=== PATIENT | female | born 1985 ===

== ENCOUNTER 2018-11-22 21:07 | Emergency (ER) | payer BC ==
[2018-11-22 21:13] VITALS: BP 116/70; PULSE 74; TEMP 98.3; BMI 21.8
[2018-11-22] MEDS ORDERED: predniSONE 20 MG TABLET (UD) PO ONE (21:17)
[2018-11-22] MEDS ORDERED: predniSONE 20 MG TABLET (UD) ONE (21:20)
--- NOTE | 2018-11-22 21:21 | PDOC ---
History of Present Illness - General History Source: Patient Exam Limitations: No Limitations - History of Present Illness Initial Comments: 11/22/18 21:15 A portion of this note was documented by scribe services under my direction. I have reviewed the details of the note, within reason, and agree with the documentation with the following case summary and management plan written by me. Patient treated in the ED. Nursing notes are reviewed and incorporated into the medical decision-making. Vital signs reviewed. Assessment and plan: This is a 33-year-old female who comes in complaining of a rash on her face 2 days. Patient said rashes itchy otherwise has no history of rashes similar in the past and no other place on her body with rashes patient took some Benadryl this morning with minimal relief and otherwise hasn't taken anything for the rash. Patient denies any exposure to new beauty products lotion creams or ointments. Patient given prednisone here in the emergency room and sent home with a Medrol Dosepak in addition to that she was told she can take Benadryl if needed <Corey Cross I - Last Filed: 11/22/18 21:14> - General History Source: Patient Exam Limitations: No Limitations - History of Present Illness Initial Comments: 11/22/18 21:22 The patient is a 33 year old female who presents to the ED with rash for 3 days. The patient states she developed an itchy rash throughout her face and neck 3 days ago. She states the rash is progressively worsening and is more itchy. Patient states she took benadryl with no relief of present symptoms. Denies new lotions/creams/facial products. Denies fever or chills. Denies any other symptoms. PAST MEDICAL HISTORY: no significant history PAST SURGICAL HISTORY: no significant history FAMILY HISTORY: no pertinent history SOCIAL HISTORY: Pt lives with family and is employed.Patient lives in [place] and is currently visiting [place] for the holiday season. MEDICATIONS: reviewed ALLERGIES: As per nursing notes General: No fevers or chills, no weakness, no weight loss HEENT: No change in vision. No sore throat,. No ear pain CardioVascular: No chest pain or shortness of breath Respiratory:No cough, or wheezing. Gastrointestinal: no nausea, vomiting, diarrhea or constipation, No rectal bleeding Genitourinary: No dysuria, hematuria, or frequency Musculoskeletal: No joint or muscle pain or swelling Neurologic: No headache, vertigo, dizziness or loss of consciousness Psychiatric: nor depression Skin: + itchy rash. No easy bruising Endocrine: no increased thirst or abnormal weight change Allergic: no skin or latex allergy All other systems reviewed and normal GENERAL: The patient is awake, alert, and fully oriented, in no acute distress. HEAD: Normal with no signs of trauma. EYES: Pupils equal, round and reactive to light, extraocular movements intact, sclera anicteric, conjunctiva clear. EXTREMITIES: Normal range of motion, no edema. NEUROLOGICAL: Normal speech, normal gait. PSYCH: Normal mood, normal affect. SKIN: + fine papular rash of the cheeks and forehead with sparing of the eyes and periorbital area and lips. <Kristopher Daugherty - Last Filed: 11/22/18 21:22> - General Chief Complaint: Rash Stated Complaint: FACIAL RASH Time Seen by Provider: 11/22/18 21:09 Past History - Past Medical History COPD: No - Suicide/Smoking/Psychosocial Hx Smoking History: Never smoked <Corey Cross I - Last Filed: 11/22/18 21:14> <Kristopher Daugherty - Last Filed: 11/22/18 21:22> - Past Medical History Allergies/Adverse Reactions: Allergies Allergy/AdvReac Type Severity Reaction Status Date / Time No Known Allergies Allergy Unverified 11/22/18 21:12 Home Medications: Ambulatory Orders Methylprednisolone [Medrol Dose Raghav] 4 mg PO ASDIR #21 tablet 11/22/18 *Physical Exam - Vital Signs Last Vital Signs Temp Pulse Resp BP Pulse Ox 98.3 F 74 16 116/70 100 11/22/18 21:10 11/22/18 21:10 11/22/18 21:10 11/22/18 21:10 11/22/18 21:10 <Corey Cross I - Last Filed: 11/22/18 21:14> - Vital Signs Last Vital Signs Temp Pulse Resp BP Pulse Ox 98.3 F 74 16 116/70 100 11/22/18 21:10 11/22/18 21:10 11/22/18 21:10 11/22/18 21:10 11/22/18 21:10 <Kristopher Daugherty - Last Filed: 11/22/18 21:22> Moderate Sedation - Procedure Monitoring Vital Signs: Procedure Monitoring Vital Signs Temperature 98.3 F 11/22/18 21:10 Pulse Rate 74 11/22/18 21:10 Respiratory Rate 16 11/22/18 21:10 Blood Pressure 116/70 11/22/18 21:10 O2 Sat by Pulse Oximetry (%) 100 11/22/18 21:10 <Corey Cross I - Last Filed: 11/22/18 21:14> - Procedure Monitoring Vital Signs: Procedure Monitoring Vital Signs Temperature 98.3 F 11/22/18 21:10 Pulse Rate 74 11/22/18 21:10 Respiratory Rate 16 11/22/18 21:10 Blood Pressure 116/70 11/22/18 21:10 O2 Sat by Pulse Oximetry (%) 100 11/22/18 21:10 <Kristopher Daugherty - Last Filed: 11/22/18 21:22> *DC/Admit/Observation/Transfer - Discharge Dispostion Decision to Admit order: No <Corey Cross I - Last Filed: 11/22/18 21:14> - Attestations Scribe Attestion: 11/22/18 21:22 Documentation prepared by Kristopher Daugherty, acting as medical front desk coordinator for Corey Cross MD <Kristopher Daugherty - Last Filed: 11/22/18 21:22> Diagnosis at time of Disposition: Contact dermatitis Qualifiers: Contact dermatitis type: allergic Contact dermatitis trigger: unspecified trigger Qualified Code(s): L23.9 - Allergic contact dermatitis, unspecified cause - Discharge Dispostion Disposition: HOME Condition at time of disposition: Stable - Prescriptions Prescriptions: Methylprednisolone [Medrol Dose Raghav] 4 mg PO ASDIR #21 tablet - Patient Instructions Additional Instructions: Take the Medrol Dosepak and taper as per instructions on the pack in addition to that you can take Benadryl one tablet every 4-6 hours if needed for itching. If symptoms recur follow-up with an emergency response officer for testing to determine what is causing the symptoms. Return to the emergency department immediately with ANY new, persistent or worsening symptoms. Continue any medications as previously prescribed by your physician. You should follow up with your primary doctor as soon as possible regarding today's emergency department visit. . Please make sure your doctor reviews the results of your emergency evaluation. Thank you for coming to the Emergency Department today for your care. It was a pleasure to see you today. Please note that your evaluation is INCOMPLETE until you follow-up with your doctor.
== END 2018-11-22 21:24 | disposition home or self-care (01) ==
LOC: FER 21:07
DX: L23.9 Allergic contact dermatitis, unspecified cause (principal)
CPT/HCPCS: 99281-25